=== PATIENT | male | born 1950 | race Caucasian/White ===

== ENCOUNTER → 2021-02-03 | Outpatient (CLI) | payer MEDICARE, OTHER ==
[2021-02-03 09:24] VITALS: BP 143/89; PULSE 59; RESP 18; TEMP 98.5
--- NOTE | 2021-02-03 10:03 | P.PAINCN ---
History of Present Illness - Reason for Consult Consult date: 02/03/21 - History of Present Illness This is an initial consultation visit for this 70 years old male with a chronic history of severe neck pain with radiation to both shoulders and to the upper extremity bilaterally, it's more prominent on the left side, he reported that the symptoms started more than 3 years ago, the seated with numbness and tingling sensation in the upper extremity, and he feels some weakness in his upper extremity bilaterally, the pain is constant and increases with any activity interference with his ability to do activity of daily livings, she had multiple surgery on his right shoulder, the intensity of the pain in interfere with his ability to sleep and function, he tried pain medication Aleve, without any significant benefit and he tried physical therapy in the past without any significant benefit, denies any change in the bowel movement or urination Past Medical History Past Medical History: GERD/Reflux, Hypertension, Osteoarthritis (OA), Sleep Apnea/CPAP/BIPAP Additional Past Medical History / Comment(s): states has emphysema, dx with sleep apnea no machine use, chronic al shoulder pain, 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7 History of Any Multi-Drug Resistant Organisms: None Reported Past Surgical History: Appendectomy, Orthopedic Surgery Additional Past Surgical History / Comment(s): right elbow sx, X2, rt shoulder rotator cuff X2, left hand 4th finger amputated and reattached Past Anesthesia/Blood Transfusion Reactions: Previous Problems w/ Anesthesia Additional Past Anesthesia/Blood Transfusion Reaction / Comm: hard time waking up Smoking Status: Former smoker Medications and Allergies Home Medications Medication Instructions Recorded Confirmed Type Albuterol Inhaler [Ventolin Hfa 2 puff INHALATION RT-QID PRN 01/29/21 02/03/21 History Inhaler] Aspirin [Adult Low Dose Aspirin EC] 81 mg PO DAILY 01/29/21 02/03/21 History Cholecalciferol [Vitamin D3 (25 2,000 unit PO DAILY 01/29/21 02/03/21 History Mcg = 1000 Iu)] Fluticasone Nasal [place] [Flonase 2 spr EA NOSTRIL QAM 01/29/21 02/03/21 History Nasal [place]] Krill/Om-3/Dha/Epa/Phospho/Ast 1 each PO DAILY 01/29/21 02/03/21 History [Megared Nelson-3 Krill 350 mg] Losartan Potassium 100 mg PO QAM 01/29/21 02/03/21 History Montelukast [Singulair] 10 mg PO DAILY 01/29/21 02/03/21 History Multivitamins, Thera [Multivitamin 1 tab PO DAILY 01/29/21 02/03/21 History (formulary)] Omeprazole [PriLOSEC] 20 mg PO AC-BRKFST 01/29/21 02/03/21 History Zinc 50 mg PO DAILY 01/29/21 02/03/21 History Allergies Allergy/AdvReac Type Severity Reaction Status Date / Time Opioids - Morphine Analogues Allergy Itching Verified 01/29/21 14:25 nebulizers Allergy throat Uncoded 01/29/21 14:25 feels like is closing Physical Exam Vitals: Vital Signs Temp Pulse Resp BP Pulse Ox 02/03/21 09:18 98.5 F 59 L 18 143/89 94 L Physical Examinations : -Constitutiona : Cooperative , not in acute distress . -HEENT : nech : supple , no Lymphadenopathy , normal thyroid size . : eyes : no ptosis , no icterus, no photophobia . - neurologic : Cranial nerve II to XII intact , no focal neurological deffecit . -psychatric : alert , oriented X 3 , appropriate affect , intact judgment and insight . -Lymphatic : no Lymphadenopathy . - musculoskeltal : Cervical Spine motor stregnth in the deltoid and biceps, normal right side , normal Left side motor stregnth biceps and the wrist extensors normal right side ,normal left side . motor stregnth in the triceps muscle . normal Right side , normal Left side deep tendon reflexes normal at the biceps , normal at Brachioradialis , normal at triceps. cervical facet loading test: Positive Bilaterally Spurling test= positive Right , positive left. Neck distraction test= positive Right , positive left. Eleanor sign= positive right, positive left . Lumber spine moter stegnth lower extremities ,thigh and legs 5/5 Right side , 5/5 Left side Results Comments: MRI of the cervical spine C2 3 disc bulging with facet hypertrophy C3 4 disc protrusion and central canal stenosis and facet joint hypertrophy C4 5 Central canal stenosis and facet joint hypertrophy at C5 6 central canal stenosis and facet joint hypertrophy Assessment and Plan Plan: Assessment and plan=1-cervical spinal stenosis. 2-cervical degenerative disc disease. 3-cervical spondylosis with cervical facet arthropathy. She could benefit from cervical epidural steroid injection and C67 or C7-T1, Time with Patient: Greater than 30 PQRS Measure Charge Sheet Measure #130: Documentation of Current Meds in Medical Chart: Patient's medications documented in chart Measure #226: Tobacco Use: Screen & Cessation Intervention: Pt not a tobacco user Measure #111: Pneumonia Vaccination: Pneumococcal vaccine NOT administered or previously given Measure #47: Advance Care Plan: Advance care planning discussed & documented, pt chose/unable to give Measure #412: Opioid Treatment Agreement: No documentation of signed opioid treatment agreement Measure #408: Opioid Therapy Follow-up Evaluation: Patient had NO f/u eval minimum every 3 months during opioid therapy Measure #317: Preventitive Care & Scrn High Bld Press & F/U: Pre-hypertensive or hypertensive BP documented, pt will f/u with PCP Measure #128: Body Mass Index (BMI) Screening & Follow-up: BMI documented ABOVE normal parameters - f/u documented Measure #131: Pain Assessment & Follow-up: Pain positive & plan documented, Follow-up scheduled Measure #431: Unhealthy Alcohol Use Preventative Care & Scrn: Patient not identified as an unhealthy alcohol user PQRS Narrative: Blood Pressure 143/89 Pain Intensity [Left Shoulder] 3 Scale Used Numeric (1 - 10) Hx Alcohol Use (MH) No Home Medications: Ambulatory Orders Albuterol Inhaler [Ventolin Hfa Inhaler] 2 puff INHALATION RT-QID PRN 01/29/21 Aspirin [Adult Low Dose Aspirin EC] 81 mg PO DAILY 01/29/21 Cholecalciferol [Vitamin D3 (25 Mcg = 1000 Iu)] 2,000 unit PO DAILY 01/29/21 Fluticasone Nasal [place] [Flonase Nasal [place]] 2 spr EA NOSTRIL QAM 01/29/21 Krill/Om-3/Dha/Epa/Phospho/Ast [Megared Nelson-3 Krill 350 mg] 1 each PO DAILY 01/29/21 Losartan Potassium 100 mg PO QAM 01/29/21 Montelukast [Singulair] 10 mg PO DAILY 01/29/21 Multivitamins, Thera [Multivitamin (formulary)] 1 tab PO DAILY 01/29/21 Omeprazole [PriLOSEC] 20 mg PO AC-BRKFST 01/29/21 Zinc 50 mg PO DAILY 01/29/21
== END | disposition home or self-care (01) ==
LOC: PNWHC3 09:11
PROVIDERS: ATTEND Specialist
DX: M48.02 Spinal stenosis, cervical region (principal); M50.30 Other cervical disc degeneration, unspecified cervical region; M47.9 Spondylosis, unspecified; M46.92 Unspecified inflammatory spondylopathy, cervical region
CPT/HCPCS: 99211

== ENCOUNTER 2021-02-27 11:43 | Day surgery (SDC) | payer MEDICARE, OTHER ==
[2021-02-21 13:35] VITALS: BMI 30.4
[2021-02-27 12:19] VITALS: TEMP 97.8
[2021-02-27] MEDS ORDERED: LACTATED RINGERS 1,000 ML IV ONE (12:32)
[2021-02-27] MEDS ORDERED: DEXAMETHASONE SOD PHOSPHATE 10 MG/ML 1 ML VIAL ONE (12:51)
[2021-02-27] MEDS ORDERED: fentaNYL (PF) 50 MCG/ML 2 ML AMP ONE (12:51)
[2021-02-27] MEDS ORDERED: IOPAMIDOL M200 10 ML VIAL ONE (12:51)
[2021-02-27] MEDS ORDERED: MIDAZOLAM 2 MG/2 ML VIAL ONE (12:51)
--- NOTE | 2021-02-27 13:06 | P.PCN ---
Date of Procedure: 02/27/21 Description of Procedure: Diagnosis: Cervical radiculopathy Cervical degenerative disc disease POSTOPERATIVE DIAGNOSIS: Diagnoses: Cervical radiculopathy Cervical degenerative disc disease PROCEDURE Cervical Epidural steroid injection under fluoroscopic guidance at the C7-T1 interspace using leftparamedian approach Cervical epidurogram ANESTHESIA: Local with 1% lidocaine 3 ml and IV sedation with Versed and fentanyl, sedation time 10 min Fluoroscopy was used for the procedure and images were saved in the radiology portion of the chart. EBL: Minimal PROCEDURE INDICATION: The patient presents with cervical radicular symptoms unresponsive to conservative treatment. This is the first cervical epidural steroid injection. PROCEDURE DESCRIPTION / TECHNIQUE: The patient was seen and identified in the preoperative area. Risks, benefits, complications including but not limited to infections ,bleeding ,allergic reaction to the medications ,nerve damage and incomplete pain relief, and alternatives were discussed with the patient. The patient agreed to proceed with the procedure and signed the consent. IV was started, and vital signs were stable. Patient was taken to the OR and time out was completed. The patient was placed in the prone position on procedure table and a pillow was placed under the chest area. The cervical area was prepped and draped in the usual sterile fashion. Conscious sedation was used during the procedure to decrease patients anxiety. Vital signs was monitored during the entire procedure. Using anterior-posterior fluoroscopy, the C7-T1 interlaminar space was identified and the skin over this site was marked and then infiltrated with 1% lidocaine subcutaneously. Subsequently, a 20-gauge Tuohy epidural needle was inserted and advanced toward the epidural space using the loss of resistance technique and guided by AP and 50 oblique fluoroscopy. The correct needle position in the epidural space was verified. After negative aspiration for blood and CSF and in the absence of paresthesias, Isovue 200 2 mL's was injected under live fluoroscopy with good epidural spread. After negative aspiration, a 4 ml mixture containing 10 mg of dexamethasone, 3 mL of preservative free normal saline was injected. Needle was withdrawn intact, skin was cleansed, and bandages were applied. COMPLICATIONS: None DISPOSITION / PLANS: The patient was placed in a supine position and transferred to the recovery area in a stable condition for observation. There was no evidence of lower extremity motor or sensory deficit after the procedure. Patient was discharged from the recovery room after meeting discharge criteria. Home discharge instructions were given to the patient by the staff. The patient will be scheduled a [follow up/repeat procedure] in the clinic in 2-4 weeks.
[2021-02-27] MEDS ORDERED: IV FLUID CONTINUATION 1,000 ML IV ONE (13:10)
[2021-02-27 13:13] VITALS: RESP 16
--- NOTE | 2021-02-27 13:15 | FL ---
Fluoroscopy HISTORY: Pain 23 seconds fluoroscopy time supplied to the referring clinician. 2 intraoperative C-arm images docum ent the procedure. See dictated report from anesthesia.
[2021-02-27 13:22] VITALS: BP 118/78; PULSE 55
== END 2021-02-27 13:45 | disposition home or self-care (01) ==
LOC: ORPAIN 11:43
PROVIDERS: ATTEND Anesthesiology
DX: M50.13 Cervical disc disorder with radiculopathy, cervicothoracic region (principal); Z88.5 Allergy status to narcotic agent
CPT/HCPCS: 62321; J2250; J1100; J3010; Q9966; 99152

== ENCOUNTER 2021-04-01 13:09 | Day surgery (SDC) | payer MEDICARE, OTHER ==
[2021-03-31 10:42] VITALS: BMI 29.5
[~2021-04-01 13:09] MED LIST: LACTATED RINGERS 1,000 ML IV SCH
[2021-04-01 13:40] VITALS: TEMP 97.1
[2021-04-01] MEDS ORDERED: fentaNYL (PF) 50 MCG/ML 2 ML AMP ONE (14:00)
[2021-04-01] MEDS ORDERED: IOPAMIDOL M200 10 ML VIAL ONE (14:00)
[2021-04-01] MEDS ORDERED: MIDAZOLAM 2 MG/2 ML VIAL ONE (14:00)
[2021-04-01] MEDS ORDERED: DEXAMETHASONE SOD PHOSPHATE 10 MG/ML 1 ML VIAL ONE (14:00)
--- NOTE | 2021-04-01 14:14 | P.PCN ---
Date of Procedure: 04/01/21 Procedure(s) Performed: PROCEDURE 1. Cervical epidural steroid injection under fluoroscopic guidance, C7-T1 (fluoroscopy images available in the radiology department ) 2. Cervical epidurogram. PREOPERATIVE DIAGNOSIS: 1- Cervical Degenerative Disc Diseases 2- Cervical Spinal stenosis 3-cervical spondylosis with cervical Facet arthropathy without myelopathy POSTOPERATIVE DIAGNOSIS: : 1- Cervical Degenerative Disc Diseases , 2- Cervical spinal stenosis 3-,cervical spondylosis with cervical Facet arthropathy without myelopathy ANESTHESIA: Local anesthesia with lidocaine 1 % , and moderate sedation, with Versed 2 mg and Fentanyl 50 mcg. EBL 0 PROCEDURE INDICATION: The patient with neck pain and radiculitis unresponsive to conservative treatment consents for procedure. PROCEDURE DESCRIPTION / TECHNIQUE: The patient was seen and identified in the preoperative area. Risks, benefits, complications, including but not limited to infections ,bleeding , allergic reactions to the medications ,and not complete pain releife, and alternatives were discussed with the patient, the patient agreed to proceed with the procedure and signed the consent. Patient was taken to the OR and time out was completed. The patient was placed in the prone position on the procedure table. A pillow was placed under the patients chest to increase the cervical interlaminar space. The cervical area was prepped and draped in the usual sterile fashion. Vital signs were closely monitored during the procedure. Conscious sedation was used during the procedure to decrease patients anxiety. Using anterior-posterior fluoroscopy, the C7-T1 interlaminar space was identified and the skin over this site was marked and then infiltrated with 1% lidocaine subcutaneously. Subsequently, a 20-gauge 3-1/2-inch Tuohy epidural needle was inserted and advanced toward the epidural space by means of the ``hanging-drop technique and guided by AP and lateral fluoroscopy. The correct needle position in the epidural space was verified with the injection of 2 mL of the water soluble contrast dye Isovue-200 and observing an excellent epidurogram with the epidural spread of the dye, after negative aspiration for blood and CSF and in the absence of paresthesias. then, mixture containing 20 mg Dexamethasone and 2 ml of preservative-free normal saline injected and a washout of epidurogram was seen. Needle was withdrawn intact, skin was cleansed, and bandages were applied. Complications= none. Disposition= patient was placed in supine position and transferred to the recovery room area in stable condition and there was no evidence of upper or lower extremity motor or sensory deficit after the procedure patient was discharged from recovery room after discharge criteria met and home discharge instructions was given by the staff and patient will follow with the pain clinic in 2-4 weeks
[2021-04-01 14:16] VITALS: RESP 16
[2021-04-01 14:30] VITALS: BP 123/79; PULSE 55
--- NOTE | 2021-04-01 14:32 | FL ---
Fluoroscopy HISTORY: Pain 2 seconds fluoroscopy time supplied to the referring clinician. 1 intraoperative C-arm images docume nt the procedure. See dictated report from anesthesia.
[2021-04-01] MEDS ORDERED: IV FLUID CONTINUATION 1,000 ML IV ONE (14:33)
== END 2021-04-01 14:57 | disposition home or self-care (01) ==
LOC: ORPAIN 13:09
PROVIDERS: ATTEND Specialist
DX: M47.22 Other spondylosis with radiculopathy, cervical region (principal); M50.10 Cervical disc disorder with radiculopathy, unspecified cervical region; M48.02 Spinal stenosis, cervical region; Z88.5 Allergy status to narcotic agent
CPT/HCPCS: 62321; J2250; J1100; J3010; Q9966

== ENCOUNTER 2021-04-30 09:58 | Day surgery (SDC) | payer MEDICARE, OTHER ==
[2021-04-29 09:11] VITALS: BMI 31.1
[~2021-04-30 09:58] MED LIST changes: +DEXAMETHASONE SOD PHOSPHATE 4 MG/ML 1 ML VIAL IV ONE; -LACTATED RINGERS 1,000 ML IV SCH; +LIDOCAINE 1% (10MG/ML) FOR IV START INTRADERMA PRN; +ONDANSETRON 4 MG/2 ML VIAL IVP ONE; +ceFAZolin 1,000 MG in SODIUM CHLORIDE 0.9% IRRIGATIO 1,000 ML IRRIGATION PRN; +fentaNYL (PF) 50 MCG/ML 2 ML AMP IV PRN
[2021-04-30] MEDS: LACTATED RINGERS 1,000 ML IV SCH (10:45)
[2021-04-30 11:16] LABS: Albumin 4.4 g/dL (3.5-5.0); Calcium 9.5 mg/dL (8.4-10.2); Potassium 3.9 mmol/L (3.5-5.1); Total Bilirubin 1.2 mg/dL (0.2-1.3); Total Protein 7.4 g/dL (6.3-8.2)
[2021-04-30] MEDS ORDERED: KETAMINE 10 MG/ML 20 ML VIAL ONE (13:14)
[2021-04-30] MEDS ORDERED: PROPOFOL 10 MG/ML 20 ML VIAL IV ONE (13:14)
[2021-04-30] MEDS ORDERED: NEOSTIGMINE 1 MG/ML 10 ML VIAL ONE (13:14)
[2021-04-30] MEDS ORDERED: LIDOCAINE 1% INJ 10MG/ML (20 ML MDV) ONE (13:14)
[2021-04-30] MEDS ORDERED: MIDAZOLAM 2 MG/2 ML VIAL ONE (13:14)
[2021-04-30] MEDS ORDERED: fentaNYL (PF) 50 MCG/ML 2 ML AMP ONE (13:14)
[2021-04-30] MEDS ORDERED: PHENYLEPHRINE-0.9% NACL SYG 1,000 MCG/10 ML SYRINGE ONE (13:14)
[2021-04-30] MEDS ORDERED: SUCCINYLCHOLINE CHLORIDE 100 MG/5 ML SYR IV ONE (13:14)
[2021-04-30] MEDS ORDERED: GLYCOPYRROLATE 0.2 MG/ML 2 ML VIAL ONE (13:14)
[2021-04-30] MEDS ORDERED: ePHEDrine 50 MG/ML 1 ML AMP ONE (13:14)
[2021-04-30] MEDS ORDERED: ROCURONIUM 10 MG/ML (5 ML VIAL) IV ONE (13:14)
[2021-04-30] MEDS ORDERED: HYDROmorphone (PF) 1 MG/ML ONE (13:14)
[2021-04-30] MEDS ORDERED: THROMBIN (BOVINE) 5,000 UNIT VIAL TOPICAL ONE (13:16)
[2021-04-30] MEDS ORDERED: LIDOCAINE 0.5%-EPI 1:200,000 50 ML VIAL SQ ONE (13:16)
[2021-04-30] MEDS ORDERED: GELATIN SPONGE,ABSORB (LARGE) 1 EACH SPONGE TOPICAL ONE (13:16)
--- NOTE | 2021-04-30 14:52 | XR ---
Cervical spine view HISTORY: Needle placement Single lateral view of the cervical spine There is a needle at the intervertebral disc space of C4-5. There is associated spondylosis, lower ce rvical spine not well seen. Endotracheal tube is in place. There are overlying artifacts. The patient is edentulous. Prevertebral soft tissues appear prominently. IMPRESSION: Orthopedic localization.
[2021-04-30] MEDS ORDERED: LACTATED RINGERS 1,000 ML IV ONE (15:05)
[2021-04-30] MEDS ORDERED: ONDANSETRON 4 MG/2 ML VIAL IVP PRN (15:17)
[2021-04-30] MEDS ORDERED: HYDROmorphone 0.5 MG/0.5 ML SYRINGE IVP PRN (15:17)
[2021-04-30] MEDS ORDERED: BENZOCAINE/MENTHOL LOZENG 1 EACH LOZENGE MUCOUS MEM PRN (15:17)
[2021-04-30] MEDS ORDERED: CYCLOBENZAPRINE 10 MG TAB PO PRN (15:17)
[2021-04-30] MEDS ORDERED: ACETAMINOPHEN TAB 325 MG TAB PO PRN (15:17)
[2021-04-30] MEDS ORDERED: traMADol 50 MG TAB PO PRN (15:21)
--- NOTE | 2021-04-30 15:24 | P.OP ---
Date of Procedure: 04/30/21 Preoperative Diagnosis: Severe cervical stenosis C3 4 5 C5 6, herniated nucleus pulposis C4 5 C5 6, upper extremity radiculopathy, upper extremity weakness, neck pain, degenerative disc disease Postoperative Diagnosis: Same Anesthesia: GETA Pathology: none sent Condition: stable Disposition: PACU Description of Procedure: BRIEF OPERATIVE NOTE Preoperative Diagnosis:Severe cervical stenosis C3 4 5 C5 6, herniated nucleus pulposis C4 5 C5 6, upper extremity radiculopathy, upper extremity weakness, neck pain, degenerative disc disease Postoperative Diagnosis:Severe cervical stenosis C3 4 5 C5 6, herniated nucleus pulposis C4 5 C5 6, upper extremity radiculopathy, upper extremity weakness, neck pain, degenerative disc disease Procedure: Anterior cervical decompression with discectomy and fusion C4 5 C5 6 Placement of interbody graft C4 5 C5 6 Application of anterior cervical plate C4 5 C5 6 Surgeon: Dr. [employer] Manager: Rohna Genao is present throughout the entire the case persistence during positioning, dissection, exposure, visualization, and all crucial elements of the case as well as closure. Anesthesia: General anesthesia Estimated blood loss: Approximately 50 mL Complications: None apparent Components implanted: K2M [place] anterior cervical plate system with screws and VIkos interbody allograft bone graft with 1 mL of DBX bone putty supplement bone graft Disposition: To recovery room in good stable condition. OPERATIVE INDICATIONS The patient has had long-standing issues in their neck and upper extremities. Patient has been having significant worsening of his neck and his upper extremity symptoms particularly on the left side. He is experiencing radiculopathy with some evidence weakness. His found have disc herniation and cervical stenosis particularly at C4 5 and C5 6 which went well with his neck and upper extremity symptoms. The patient has been through conservative yarely atment. We discussed various treatment options including surgery, and the patient wishes to proceed with surgery We discussed the risk, patient's alternatives and benefits of surgery including but not limited to, risk of bleeding risk of infection, risk of need for further surgery, risk of decreased, loss of motion, muscle function, malunion nonunion, hardware failure, nerve damage, paralysis, heart attack, and . OPERATIVE SUMMARY After discussing all the risks, patient alternatives and benefits at length, the patient elected to proceed with surgical intervention, signed informed consent, and presented for their procedure. The patient was seen and examined in the preoperative holding area and the surgical site was marked. The patient was given antibiotics and brought to the operating room. The patient was positioned on the operating room table in a supine position being careful to pad any bony prominences and pressure points. The patient was sedated and intubated by anesthesia in standard fashion. Once the airway and C- spine were stabilized the patient's arms were padded and tucked at her side, with her shoulders gently taped. The head was placed in a donut pad with the neck in good neutral alignment and position. We were careful to maintain the patient's cervical spine and good neutral alignment and position throughout. The patient was prepped and draped in a normal standard fashion. An appropriate timeout and keystone protocol performed. We were able to proceed with the surgery. The local wound area was infiltrated with local anesthetic. An incision was made transversely approximately 2-1/2 cm over the appropriate levels at C5 6. Dissection was taken down subcutaneously to the level of the platysma which was split in line with its fibers. Dissection was taken with a carotid approach, with the trachea and esophagus medial and the carotid sheath laterally. We dissected down to the anterior surface of the vertebral bodies. Intraoperative x-ray was taken which showed a marker at the appropriate level at C4 5. With the appropriate level positively confirmed, we were able to proceed with discectomy at the appropriate levels. All of the operative levels were exposed appropriately. The patient had all their twitches back, and there was no evidence of recurrent laryngeal issue. The wound was copiously irrigated and suctioned dry as had been done periodically throughout the case. At the appropriate level/levels, starting at C4 5 and then removing the C5 6 I established an annulotomy with an 11 blade scalpel. A discectomy was performed with a combination of pituitary rongeurs, curettes, a high-speed bur, and Kerrison rongeurs. The posterior longitudinal ligament was taken down as were any posterior osteophytes. This gave good central and bilateral foraminal decompression. There is no evidence of any dural tear or leak. The endplates were prepared with a high-speed bur. With the endplates in good parallel position, I was able to size for the appropriate size interbody graft. The wound was irrigated and suctioned dry the graft was prepared and malleted into position. It had good alignment and position with the anterior surface flush with the anterior surface of the vertebral bodies. This was done similarly the appropriate levels first at C4 5 and then at C5 6. With the grafts intact, I was able to measure and contour and appropriate sized plate. The plate was positioned at the midline over the appropriate levels at C4 5 and 6. Screw holes were established with a hand drill and drill guide. Screws were placed in good alignment and position with excellent bony purchase. They were seated under the locking device. The construct was checked and found to be stable. Intraoperative x-ray was taken which showed good alignment and position of the implants at the appropriate levels. There was no evidence of any dural tear or leak. Good hemostasis was maintained. The wound was copiously irrigated and suctioned dry as had been done periodically throughout the case. The platysma was closed with absorbable suture. The subcutaneous tissue was closed. The subcuticular tissue was closed with absorbable suture. The wound was cleaned and dried and dressed appropriately. A soft cervical collar was placed appropriately. The patient was woken up by anesthesia, extubated, transferred back gently to their hospital bed and brought to the recovery room in good stable condition. The patient will be admitted to the hospital for appropriate postoperative care, medical management and monitoring. We will continue to follow them closely about the postoperative course.
--- NOTE | 2021-04-30 15:36 | XR ---
Cervical spine HISTORY: Hardware placement Single lateral view of the cervical spine correlated prior exam same date earlier time Patient shows anterior cervical fusion and discectomy change at C4 likely C6. Lower cervical spine is not seen secondary to technique. There is spondylosis C3-4 with associated disc height loss. Lucency is present in the prevertebral soft tissues likely due to postoperative state. Endotracheal tube is in place. Patient is edentulous. IMPRESSION: Orthopedic follow-up, limitations as described.
[2021-04-30] MEDS: SODIUM CHLORIDE 0.9% 1,000 ML IV SCH (17:49)
[2021-04-30] MEDS: ALBUTEROL NEBULIZED 2.5 MG/3 ML INHALATION SCH ×3 (18:48→21:51)
[2021-04-30] MEDS ORDERED: amLODIPine 5 MG TAB PO SCH (21:00)
[2021-04-30] MEDS ORDERED: MONTELUKAST 10 MG TAB PO SCH (21:00)
[2021-04-30] MEDS: HYDROmorphone 1 MG/ML 1 ML SYRINGE IVP PRN (23:53)
[2021-05-01] MEDS: HYDROmorphone 1 MG/ML 1 ML SYRINGE IVP PRN (04:28)
[2021-05-01] MEDS: SODIUM CHLORIDE 0.9% 1,000 ML IV SCH (04:30)
[2021-05-01] MEDS: LACTATED RINGERS 1,000 ML IV SCH (05:34)
[2021-05-01] MEDS ORDERED: PANTOPRAZOLE 40 MG TABLET PO SCH (07:30)
[2021-05-01] MEDS ORDERED: FLUTICASONE 50MCG/SPRAY NASAL 16GM EA NOSTRIL SCH (09:00)
[2021-05-01] MEDS ORDERED: DHA PO SCH (09:00)
[2021-05-01] MEDS ORDERED: EPA PO SCH (09:00)
[2021-05-01] MEDS ORDERED: atenoloL 25 MG TAB PO SCH (09:00)
[2021-05-01] MEDS ORDERED: PHOSPHO PO SCH (09:00)
[2021-05-01] MEDS ORDERED: ZINC SULFATE 220 MG CAP PO SCH (09:00)
[2021-05-01] MEDS ORDERED: MULTIVITAMINS, THERA 1 EACH TAB PO SCH (09:00)
[2021-05-01] MEDS ORDERED: ASPIRIN 81 MG PO SCH (09:00)
[2021-05-01] MEDS ORDERED: AST PO SCH (09:00)
[2021-05-01] MEDS ORDERED: hydroCHLOROthiazide 25 MG TAB PO SCH (09:00)
[2021-05-01] MEDS ORDERED: CHOLECALCIFEROL 25 MCG (1000 IU) TABLET PO SCH (09:00)
[2021-05-01] MEDS ORDERED: LOSARTAN 50 MG TAB PO SCH (09:00)
[2021-05-01] MEDS ORDERED: KRILL PO SCH (09:00)
[2021-05-01] MEDS ORDERED: [UNRECOGNIZED DRUG - OTHER] PO SCH (09:00)
[2021-05-01] MEDS ORDERED: DEXAMETHASONE SOD PHOSPHATE 10 MG/ML 1 ML VIAL IVP STA (09:04)
[2021-05-01] MEDS: ALBUTEROL NEBULIZED 2.5 MG/3 ML INHALATION SCH ×2 (09:07→11:52)
--- NOTE | 2021-05-01 09:13 | P.DS ---
Providers Date of admission: 04/30/21 Attending physician: Mani Givens Primary care physician: Jason Ramos [facility] Course: The patient presented on the day of admission as per their operative note. 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 The patient underwent his surgical intervention as per his operative note. This morning he is complaining of soreness in his throat. His neck is soft and has been able to drink water and have some soft foods such as had also hospital had some difficulty with more solid foods. He is drinking adequately without any problems. He denies any coughing. He says his arms are feeling somewhat better from the surgery. Physical Exam The incision site is clean dry and intact. There is no erythema no drainage. There is no purulence no evidence of infection. His neck is soft and nontender. It is supple. There is no significant swelling. There is no obvious hematoma. Abdomen soft and nontender. Chest has good excursion with deep inspiration and expiration. The patient has active and passive range of motion intact at the upper and lower extremities. There is no acute change in neurologic status. He has sustained dorsal plantar flexion and EHL his lower extremity is. He has good active and passive range motion in his upper extremity. Hospital Course Postoperative day #1 status post anterior cervical decompression with discectomy and fusion at C45 and C5 6 for his severe cervical stenosis with disc herniation upper extremity radiculopathy The patient has been making progress postoperatively. He is having some difficulty with swallowing but is able to have some crushed foods. He likely has some swelling around his esophagus from the surgical site and I would like to see if he makes some improvement with his swallowing with a one-time dose of steroid to see if it will alleviate some the swelling around his esophagus and the surgical site. I think this can give him some benefit with his swallowing. They have completed the prophylactic antibiotics without any signs or symptoms of infection. The pain was initially controlled with IV medications and we will transition to see how it is controlled appropriately with oral medications. The patient has been able to increase their mobilization. The patient has progressed appropriately, But he is still having some trouble with swallowing and we need to transition to more to his oral pain medications. If her able to do this then I think they are in good stable condition for discharge today. They will be sent home with appropriate prescriptions. I answered their questions to the best of my ability in a language that they can understand and they are agreeable with the plan. They will follow up as daryl rivera in approximately 2 weeks or sooner if he is having problems. If his pain is not able to be controlled he may have to stay overnight Patient Condition at Discharge: Good Plan - Discharge Summary Discharge Rx Participant: No New Discharge Prescriptions: New oxyCODONE HCL/ACETAMINOPHEN [Percocet 5-325 mg] 1 tab PO Q6HR PRN 3 Days #12 tab PRN Reason: Pain No Action Fluticasone Nasal [place] [Flonase Nasal [place]] 2 spr EA NOSTRIL QAM hydroCHLOROthiazide 25 mg PO DAILY Irbesartan 300 mg PO QAM Omeprazole [PriLOSEC] 20 mg PO AC-BRKFST Multivitamins, Thera [Multivitamin (formulary)] 1 tab PO DAILY Albuterol Inhaler [Ventolin Hfa Inhaler] 2 puff INHALATION QID Montelukast [Singulair] 10 mg PO HS Zinc 50 mg PO DAILY Krill/Om-3/Dha/Epa/Phospho/Ast [Megared [place]-3 Krill 350 mg] 1 each PO DAILY Cholecalciferol [Vitamin D3 (25 Mcg = 1000 Iu)] 2,000 unit PO DAILY Aspirin [Adult Low Dose Aspirin EC] 81 mg PO DAILY atenoloL [Tenormin] 25 mg PO QAM amLODIPine BESYLATE 5 mg PO HS Discharge Medication List Albuterol Inhaler [Ventolin Hfa Inhaler] 2 puff INHALATION QID 01/29/21 [History] Aspirin [Adult Low Dose Aspirin EC] 81 mg PO DAILY 01/29/21 [History] Cholecalciferol [Vitamin D3 (25 Mcg = 1000 Iu)] 2,000 unit PO DAILY 01/29/21 [History] Fluticasone Nasal [place] [Flonase Nasal [place]] 2 spr EA NOSTRIL QAM 01/29/21 [History] Krill/Om-3/Dha/Epa/Phospho/Ast [Megared [place]-3 Krill 350 mg] 1 each PO DAILY 01/29/21 [History] Montelukast [Singulair] 10 mg PO HS 01/29/21 [History] Multivitamins, Thera [Multivitamin (formulary)] 1 tab PO DAILY 01/29/21 [History] Omeprazole [PriLOSEC] 20 mg PO AC-BRKFST 01/29/21 [History] Zinc 50 mg PO DAILY 01/29/21 [History] atenoloL [Tenormin] 25 mg PO QAM 03/31/21 [History] hydroCHLOROthiazide 25 mg PO DAILY 03/31/21 [History] Irbesartan 300 mg PO QAM 04/29/21 [History] amLODIPine BESYLATE 5 mg PO HS 04/29/21 [History] oxyCODONE HCL/ACETAMINOPHEN [Percocet 5-325 mg] 1 tab PO Q6HR PRN 3 Days #12 tab 05/01/21 [Rx] Follow up Appointment(s)/Referral(s): Mani Givens DO [Doctor of Osteopathic Medicine] - 2 Weeks Activity/Diet/Wound Care/Special Instructions: Keep site clean. May shower with waterproof Tegaderm intact. Do not soak in a tub. After 72 hours postoperatively, patient May remove dressing and then may shower with area uncovered. Leave glue intact and allow it to fray off on its own. May ambulate as tolerated. Avoid heavy or rigorous activity. No repetitive bending twisting or lifting. No overhead work. Discharge Disposition: HOME SELF-CARE
[2021-05-01 13:16] VITALS: BP 157/75; RESP 14; TEMP 97.6
[2021-05-01 13:33] VITALS: PULSE 68
== END 2021-05-01 15:57 | disposition home or self-care (01) ==
LOC: OR 09:58 → 5NMEDONC 17:20 → OR 05-01 15:57
PROVIDERS: ATTEND Orthopaedic Surgery Orthopaedic Surgery of the Spine
DX: M50.121 Cervical disc disorder at C4-C5 level with radiculopathy (principal); M48.02 Spinal stenosis, cervical region; M50.10 Cervical disc disorder with radiculopathy, unspecified cervical region; I10 Essential (primary) hypertension; E78.5 Hyperlipidemia, unspecified; Z20.822 Contact with and (suspected) exposure to COVID-19; G47.33 Obstructive sleep apnea (adult) (pediatric); J43.9 Emphysema, unspecified; R73.03 Prediabetes; K21.9 Gastro-esophageal reflux disease without esophagitis; R00.2 Palpitations; J98.4 Other disorders of lung; Z97.3 Presence of spectacles and contact lenses; R51.9 Headache, unspecified; Z79.899 Other long term (current) drug therapy; Z88.5 Allergy status to narcotic agent; Z98.890 Other specified postprocedural states; Z82.49 Family history of ischemic heart disease and other diseases of the circulatory system; Z87.891 Personal history of nicotine dependence; Z88.2 Allergy status to sulfonamides; Z88.8 Allergy status to other drugs, medicaments and biological substances
CPT/HCPCS: 80053; 87635; 72020; 22551; 22552; 22845; 20931; C1713 ×2; C1762 ×2; J2250; J1100; J2710; J0690 ×3; J2405; J2001; J3010; J1170 ×3; J2370; J0330; J2704